=== PATIENT | female | born 1945 | race Caucasian/White ===

== ENCOUNTER 2016-08-09 13:33 | Observation (INO) | payer MEDICARE ==
[~2016-08-09] VITALS: Ht 162.6 cm; Wt 61.4 kg
[~2016-08-09 13:33] MED LIST: AMOX500C2 PO; ASPI-973 PO; GLIM4TAB2 PO; LISI10TA PO; METF1000 PO; SIMV20TA4 PO; TRAZ-118 PO
--- NOTE | 2016-08-09 13:45 | ED.REPORT ---
HPI-General Illness Date of Service Aug 09, 2016 ED Provider: Quincy Jackman MD The patient is a 70 year old female with history of diabetes mellitus, gastroparesis syndrome, hyperlipidemia, and hypertension, who presents to the emergency department after she had a ground level fall this morning. The patient states she fell out of bed but does not know how she fell. The patient states it feels like her left arm and leg get intermittently weak. In May of last year she had 3 falls in 1 day, she was hospitalized and diagnosed with a UTI. She denies any recent head injuries. She does not have history of previous strokes. She denies numbness, slurred speech, vision changes, headache , dizziness, lightheadedness, fever, chills, chest pain, shortness of breath, cough, dysuria, hematuria, nausea, vomiting or diarrhea. No recent medication changes. She is not taking blood thinners. Nursing Notes Stated Complaint: FELL/INFECTION Nursing Notes Reviewed: Yes Allergies: Coded Allergies: No Known Allergies (Verified , 08/09/16) Scheduled Amoxicillin (Amoxicillin) 500 Mg Capsule 500 MG PO BID Aspirin (Aspirin) 81 Mg Tablet 81 MG PO DAILY Glimepiride (Glimepiride) 4 Mg Tablet 4 MG PO BID Lisinopril (Lisinopril) 10 Mg Tablet 10 MG PO DAILY Metformin (Glucophage) 1,000 Mg Tablet 1,000 MG PO BID Simvastatin (Simvastatin) 20 Mg Tablet 20 MG PO HS Trazodone (Trazodone) 100 Mg Tablet 200 MG PO HS General Time Seen by MD: 13:40 Chief Complaint Other (fall) Hx Obtained From: Patient, Spouse Arrived By: Walk-in Sudden in Onset?: Yes Onset Occurred: 5 - 8 hours ago Symptom Duration: Since onset Severity: Current: No pain currently Severity: Maximum: No pain Recent Healthcare: No recent hospitalization, Recent doctor visit Similar Sx Previous: Yes Past Medical History Past Medical History Restless leg syndrome Insomnia Retinopathy Tubular adenoma of colon Gastroparesis syndrome Reports: Diabetes mellitus, Hyperlipidemia, Hypertension Past Surgical History Reports: Hysterectomy Reports: Back/neck surgery Family History Noncontributory Smoking History Never Smoker Social History Alcohol Use: Denies alcohol use Drug Use: Denies drug use Other Social History: Good social support, , Local resident Ambulatory Status Independent Review of Systems Full Review of Systems Constitutional: Denies: Chills, Fever Respiratory: Denies: Non-productive cough, Shortness of breath Cardiovascular: Denies: Chest pain GI: Denies: Abdominal pain, Diarrhea, Nausea, Vomiting Female: Denies: Dysuria, Hematuria Neurologic: Reports: Change LOC (unclear), Focal weakness (left arm and leg), Denies: Dizziness, Headache, Numbness, Slurred speech, Unable to speak, Vision change Complete sys rev & neg: except as marked. Physical Exam Vital Signs Vital Signs Date Time Temp Pulse Resp B/P Pulse Ox O2 Delivery O2 Flow Rate FiO2 08/09/16 13:47 37 95 13 148/68 95 Room Air Initial VS: Reviewed Neck: Supple, Non-tender, Full range of motion Extremities: Vascular intact, Neuro intact, No swelling, No tenderness Skin: Warm, Dry, No cyanosis Psychiatric: Mood/affect normal, Behavior normal, Normal thought content General/Constitutional: Awake, Alert, No acute distress, Well appearing Head / Eyes: Atraumatic, Normocephalic, PERRL, EOMI ENT: Airway patent Mouth: Positive: Mucous membranes dry Respiratory / Chest: Atraumatic, Breath sounds NL, Breath sounds = bilat, No respiratory distress, No rales, No rhonchi, No wheezing, No retractions Cardiovascular: Heart rate NL, Regular rhythm, Heart sounds NL, No gallop, No murmurs, No rubs, Cap refill not delayed, Peripheral circulation NL Abdomen: Atraumatic, Soft, Non-tender, No guarding, No rebound, BS normoactive , No distention Neurologic: Oriented X3, Speech NL, No sensory deficits, CN II - XII intact, Cerebellar NL, Memory NL Speech is fluent, linear, and organized. Strength is 5/5 to both upper and lower extremities. Some right-sided pronator drift, subtle but there. A little difficulty with finger to nose testing bilaterally, but nothing unilaterally. A little difficulty with heel to steiner on the left. Interpretation & Diagnostics Lab Results Interpretation Result Diagram: 08/09/16 1400 08/09/16 1400 Test 08/09/16 14:00 White Blood Count 4.9th/mm3 (3.8-10.1) Red Blood Count 3.36mil/mm3 (3.90-5.20) Hemoglobin 10.2g/dL (12.0-15.6) Hematocrit 31.1% (35.0-46.0) Mean Corpuscular Volume 92.6fL (81-100) Mean Corpuscular Hemoglobin 30.4pg (27.0-35.0) Mean Corpuscular Hemoglobin Concent 32.8% (32.0-37.0) Red Cell Distribution Width 12.5% (12.3-15.4) Platelet Count 146bil/L (150-400) Neutrophils (%) (Auto) 74.9% (40-74) Lymphocytes (%) (Auto) 19.6% (14-46) Monocytes (%) (Auto) 4.1% (4-12) Eosinophils (%) (Auto) 0.8% (0-5) Basophils (%) (Auto) 0.4% (0-3) Sodium Level 138mEq/L (134-144) Potassium Level 4.6mEq/L (3.5-5.2) Chloride Level 98mEq/L (97-108) Carbon Dioxide Level 25mmol/L (18-29) Blood Urea Nitrogen 24mg/dL (8-27) Creatinine 1.38mg/dL (0.57-1.00) Estimat Glomerular Filtration Rate 54mL/min (>59) Glucose Level 133mg/dL (60-99) Calcium Level 9.0mg/dL (8.5-10.1) Magnesium Level 1.4mg/dL (1.6-2.6) Total Bilirubin 0.8mg/dL (0.0-1.2) Aspartate Amino Transf (AST/SGOT) 17U/L (0-50) Alanine Aminotransferase (ALT/SGPT) 8U/L (0-32) Alkaline Phosphatase 47U/L (25-165) Troponin T < 0.010ug/L (0.0-0.011) Total Protein 6.4g/dL (6.4-8.4) Albumin 4.1g/dL (3.4-5.0) Hold Wahl Top Tube Received (Received) ECG Interpretation ECG Interpretation: Poor baseline quality EKG Sinus rhythm LAD No ST segment elevation No T wave abnormalities No prior EKGs available for comparison Time: 14:20 Interpreted by: ED physician X-Ray Chest Interpretation Chest Xray Interpretation: IMPRESSION: No acute process. Dictated by: Chandrakant Mac M.D. on 08/09/2016 at 14:27 Interpretation / Wet Read by: Interpret - Radiologist CT Head Interpretation IMPRESSION: No acute intracranial abnormality. Dictated by: Chandrakant Mac M.D. on 08/09/2016 at 15:19 Study: Head CT no contrast Interpretation / Wet Read by: Keyshawn - Radiologist Re-Eval/Medical Decision Med Decision/Clinical Course The patient is a 70 year old female with history of diabetes mellitus, gastroparesis syndrome, hyperlipidemia, and hypertension, who presents to the emergency department after she had a ground level fall this morning. She has additionally noticed some left arm and leg weakness and was last normal prior to going to bed last night. She has no history of stroke. Here in the emergency department the patient is afebrile stable vital signs still has notable for right-sided pronator drift and difficulty with finger to nose testing bilaterally. LABS: CBC hematocrit 31.1, no leukocytosis. CMP: BUN 24, creatinine 1.38, negative troponin, CMP is otherwise unremarkable. CXR: negative Head CT: No acute intracranial process At this time patient is not within any TPA window. Moreover, she does not have any significant ongoing neurologic deficits though does have subtle right-sided pronator drift concerning for possible previous ischemic events. No evidence of mass lesion or intracranial hemorrhage. No evidence of acute infectious process such as meningitis. Patient will be admitted for further workup including MRI and carotid imaging for risk stratification. Discussed with admitting hospitalist and accepted in stable condition. Source of Hx: Old records, Family Time of Eval: 14:57 Re-Evaluation/Progress Note: Discussed plan for admission with the patient and her . All questions were addressed. Consultation : Referral / Consult Name: Thuan Garcia MD Consulted With: Hospitalist Call Returned at: 15:10 Receptionist Scheduler: Will see patient, Agrees with eval, Agrees with plan, Accepts admit Counseled Regarding: Diagnosis, Lab results, Need for admission Discharge & Departure Primary Impression: TIA (transient ischemic attack) Transient cerebral ischemia type: unspecified Qualified Code: G45.9 - Transient cerebral ischemic attack, unspecified Disposition: ADMITTED TO HOSPITAL Discharge Condition All VS Reviewed: Yes Condition: Stable Referrals: Johan Chacon MD (PCP) Scribe Attestation Portions of this note were transcribed by Layla Jackson. Dr. Augustina Falcon personally performed the history, physical exam and medical decision-making; I reviewed and confirmed the accuracy of the information in the transcribed note. Signed by: Christoph Cummings, 08/09/2016 and 1526. copies to: Johan Chacon MD, Beck O MD Aug 09, 2016 13:45 Layla Jackson Aug 09, 2016 13:49
[2016-08-09 13:47] VITALS: BP 148/68; PULSE 95; RESP 13; O2SAT 95
[2016-08-09 14:00] VITALS: BP 138/60; PULSE 81; O2SAT 98
--- NOTE | 2016-08-09 14:28 | DRSVH ---
PROCEDURE: X-RAY CHEST ONE VIEW, PORTABLE ([id number]) INDICATIONS: SYNCOPE TECHNIQUE: One view of the chest was acquired. COMPARISON: [facility], CR, CHEST 2VW, 01/08/2013, 10:05. FINDINGS: Surgical changes and devices: None. Lungs and pleura: No pleural effusions or pneumothorax. Lungs are clear. Mediastinum: Mediastinal contours appear normal. Heart size is normal. Bones and chest wall: No suspicious bony lesions. Overlying soft tissues appear unremarkable. IMPRESSION: No acute process. Dictated by: Chandrakant Mac M.D. on 08/09/2016 at 14:27 Approved by: Chandrakant Mac M.D. on 08/09/2016 at 14:27
[2016-08-09 14:32] LABS: BASOPHILS % (AUTO) 0.4 % (0-3); EOSINOPHILS % (AUTO) 0.8 % (0-5); MONOCYTES % (AUTO) 4.1 % (4-12); Mean Corpuscular Hemoglobin 30.4 pg (27.0-35.0); Mean Corpuscular Volume 92.6 fL (81-100); NEUTROPHILS % (AUTO) 74.9 % (40-74); Platelet Count 146 bil/L (150-400)
[2016-08-09 14:47] LABS: Magnesium 1.4 mg/dL (1.6-2.6)
[2016-08-09 14:49] LABS: TROPONIN T < 0.010 ug/L (0.0-0.011)
--- NOTE | 2016-08-09 15:21 | DRSVH ---
PROCEDURE: CT BRAIN WITHOUT CONTRAST ([id number]) INDICATIONS: tia, r pronator drift TECHNIQUE: Noncontrast 4.5 mm thick angled axial sections acquired from the foramen magnum to the vertex, with c oronal reformats. COMPARISON: [facility], CT, CT BRAIN WO CON, 05/15/2016, 12:18. FINDINGS: Image quality: Excellent. CSF spaces: Basal cisterns are patent. No extra-axial fluid collections. The ventricles are symmet dejan in size and shape. Brain: No intracranial bleeds or masses. There is cerebral volume loss for age, with resultant vent ricular and sulcal prominence. There are periventricular and deep white matter chronic small vessel ischemic changes. There is intracranial internal carotid artery atherosclerosis. Skull and face: Calvarium and visualized facial bones appear intact, without suspicious lesions. Sinuses: Visualized sinuses and mastoids are clear. IMPRESSION: No acute intracranial abnormality. Dictated by: Chandrakant Mac M.D. on 08/09/2016 at 15:19 Approved by: Chandrakant Mac M.D. on 08/09/2016 at 15:20
[2016-08-09] MEDS ORDERED: Polyethylene Glycol (PEG) 17 Gm Powder PO PRN (15:30)
[2016-08-09] MEDS ORDERED: Alum-Mag Hydrox-Simeth 30 mL Suspension PO PRN (15:30)
[2016-08-09] MEDS ORDERED: Ondansetron 2 mg/mL 2 mL Inj IV PRN (15:30)
[2016-08-09] MEDS ORDERED: 0.9% Sodium Chloride 1,000 ML IV PRN (15:30)
[2016-08-09] MEDS ORDERED: Labetalol 5 mg/mL 4 mL Inj IVPUSH PRN (15:30)
[2016-08-09 16:10] LABS: INR 0.94 ratio
[2016-08-09 17:40] VITALS: BP 180/66; PULSE 85; RESP 18; O2SAT 97
[2016-08-09 18:08] VITALS: PULSE 85
[2016-08-09] MEDS: Heparin 5,000 Unit/mL Inj SUBQ SCH (18:33)
--- NOTE | 2016-08-09 18:40 | NUR ---
ADMIT Patient arrived on floor at 1730, AAOx3, able to self transfer to standing scale with SBA. Patient has FWW from home that she began using this morning for safety. Reports some mild weakness in left leg, overall neuro exam is unremarkable. Oriented to room, MPC, call light and hospital policy. Med rec completed with med list and patient recall. will bring med bottles from home for final verification. Bed low and locked, call light in reach, bed alarm on for safety, care and frequent rounding ongoing.
[2016-08-09 20:00] VITALS: PULSE 87
[2016-08-09 21:34] LABS: APPEARANCE,URINE HAZY (CLEAR,HAZY); COLOR,URINE STRAW (YELLOW); OCCULT BLOOD,URINE NEGATIVE (NEGATIVE); PH,URINE 5.5 (5.0-8.0); UROBILINOGEN,URINE NORMAL (NORMAL)
[2016-08-09 21:38] VITALS: BP 148/68; PULSE 80; RESP 20; O2SAT 96
--- NOTE | 2016-08-09 23:50 | PCM.HPMED ---
Subjective Date of Service Aug 09, 2016 Primary Provider: Admitting Physician: Eugenio Jameson MD Primary Care Physician: Johan Chacon MD Attending Physician: Eugenio Jameson MD Chief Complaint: Weakness and syncope History of Present Illness: Raine Kelley is a 70 year old female with history of diabetes mellitus, gastroparesis syndrome, hyperlipidemia, and hypertension, who presents to the emergency department after she had a ground level fall this morning. The patient states she fell out of bed but does not know how she fell. The patient states it feels like her left arm and leg get intermittently weak. The patient and her are both poor historians and unable to give a clear account of the events that brought her to the hospital. It appears that today she had an episode of severe weakness and perhaps unilateral "shaking" in her left leg and arm but this is uncertain. The shaking had resolved but the weakness remained. The patient was previously hospitalized for a TIA work up in May of 2016 with what she describes as similar symptoms, which was largely unremarkable. The patient denies any seizures, slurred speech, persistent unilateral weakness , loss of bladder or bowel function, or a postictal state. Of note the patient has not been eating well and has continued to take all of her medications including glimepiride. She does have a glucometer at home but has only today learned to use it today and had measured her blood sugar several hours after the episode of weakness which was normal. Her symptoms have now completely resolved and she reports that she returned to her baseline completely after her hospitalization in May until this episode today. Review of Systems: Scheduled Amoxicillin (Amoxicillin) 500 Mg Capsule 500 MG PO BID Aspirin (Aspirin) 81 Mg Tablet 81 MG PO DAILY Glimepiride (Glimepiride) 4 Mg Tablet 4 MG PO BID Lisinopril (Lisinopril) 10 Mg Tablet 10 MG PO DAILY Metformin (Glucophage) 1,000 Mg Tablet 1,000 MG PO BID Simvastatin (Simvastatin) 20 Mg Tablet 20 MG PO HS Trazodone (Trazodone) 100 Mg Tablet 200 MG PO HS Allergies Coded Allergies: No Known Allergies (Verified , 08/09/16) Home Medications A comprehensive review of systems was performed and was negative except as noted above in the history of present illness. PMH Restless leg syndrome Insomnia Retinopathy Tubular adenoma of colon Gastroparesis syndrome Diabetes mellitus, Hyperlipidemia, Hypertension Surgical History Hysterectomy Back/neck surgery Family History Family history of diabetes. Social History Hx Alcohol Use: No Hx Substance Use: No Hx Tobacco Use: No Smoking Status: Never Smoker Exam Vital Signs Vital Sign - Last Date Time Temp Pulse Resp B/P Pulse Ox O2 Delivery O2 Flow Rate FiO2 08/09/16 20:00 87 08/09/16 17:40 36.8 18 180/66 97 Room Air Exam General: No acute distress, well-developed, well-nourished, appropriately interactive HEENT: Normocephalic, atraumatic. External ears without defect. Pupils equal, round, and reactive to light and accommodation. Anicteric sclerae, moist conjunctivae, and no lid lag. Oropharynx free of erythema and cobble stoning with moist mucosa. Neck: Supple with full range of motion. No jugular venous distension. No bruits. No lymphadenopathy or thyromegaly. Cardiovascular: Regular rate and rhythm with no murmurs, rubs, or gallops appreciated Pulmonary: Clear to auscultation bilaterally with no crackles, wheezes, or rhonchi. Normal respiratory effort with no use of accessory muscles. Abdomen: Bowel tones present. Soft, nontender, nondistended. No hepatosplenomegaly or masses appreciated. Extremities: No clubbing, cyanosis, edema, or lymphadenopathy appreciated. Skin: Normal temperature, turgor, and texture; no rash, ulcers, or subcutaneous nodules appreciated. Neurological: Cranial nerves grossly intact. Normal muscle strength, tone, and bulk. Reflexes, coordination, and sensory function within normal limits. No known gait impairment. Psychiatric: Normal mood and affect. Alert and oriented to person, place, and time. Lab and Diagnostics Result Diagram: 08/09/16 1400 08/09/16 1400 X-Rays, CTs and MRIs CT BRAIN WITHOUT CONTRAST IMPRESSION: No acute intracranial abnormality. Dictated by: Chandrakant Mac M.D. on 08/09/2016 at 15:19 Assessment & Plan Raine Kelley is a 70 year old female with history of diabetes mellitus, gastroparesis syndrome, hyperlipidemia, and hypertension, who presents to the emergency department after she had a ground level fall this morning. The patient states she fell out of bed but does not know how she fell. Ground level fall/weakness, present on admission, active -Patient had a prior extensive work up for stroke and TIA which was negative -Due to lack of clarity on the patients symptoms and prior MRI which suggested a possibility of demylenating disease will repeat an MRI -Cardiac pathology is possible as well, although recent ECHO was negative -Will continue to monitor on telemetry -The most likely etiology of the patients episode is hypoglycemia due to glimepiride -Patient admits to eating very small meals and sometimes missing meals in favor of smaller snacks -Physical therapy and speech therapy to evaluate -Lipid panel in AM -Aspirin 81 mg and statin to be started in AM -Have asked the patients to bring in all her medications to clarify what she is taking as she is not entirely certain Diabetes mellitus type 2, present on admission, presumed stable -Last A1C 6.8, will repeat -Would D/C glimepiride Restless leg syndrome, present on admission, presumed stable -Will check iron studies Hypertension, present on admission, presumed stable -Continue lisinopril CODE STATUS: FULL CODE Admit patient to observation status with anticipated length of stay <2 midnights due to patients severity of symptoms. Attending Statement The patient was seen and examined together with Dr. Ramon on 08/09/2016 and I agree with the history, exam and plan as outlined in the note above. . Chantel Ramon DO Aug 09, 2016 23:50 Kings Carlos MD Aug 14, 2016 16:25
[2016-08-10 00:07] LABS: Unsaturated Iron Binding 216.9 ug/dL
[2016-08-10 00:41] VITALS: BP 177/78; PULSE 78; RESP 20; O2SAT 97
[2016-08-10] MEDS: Heparin 5,000 Unit/mL Inj SUBQ SCH ×2 (00:59→08:30)
[2016-08-10 04:53] VITALS: BP 183/78; PULSE 77; RESP 20; O2SAT 96
[2016-08-10 07:17] LABS: BASOPHILS % (AUTO) 0.3 % (0-3); EOSINOPHILS % (AUTO) 2.2 % (0-5); MONOCYTES % (AUTO) 8.1 % (4-12); Mean Corpuscular Hemoglobin 30.6 pg (27.0-35.0); NEUTROPHILS % (AUTO) 59.4 % (40-74); Platelet Count 130 bil/L (150-400)
[2016-08-10 10:24] VITALS: BP 165/69; PULSE 86; RESP 19; O2SAT 97
--- NOTE | 2016-08-10 10:27 | DRSVH ---
PROCEDURE: MRI STROKE PROTOCOL ([id number]) Pre- and post-contrast brain MRI, non-contrast brain MR angiogram, pre- and postcontrast neck MR traci ogram INDICATIONS: TIA TECHNIQUE: Brain: Noncontrast axial T1 spin echo, axial T2 fast spin echo, sagittal and axial FLAIR, coronal T2 fast spin echo, axial gradient echo, axial diffusion and ADC through the brain. After the administr ation of contrast, axial 3D VIBE of the cranial vasculature and brain. Brain MRA: Non-contrast 3-D time of flight MR angiogram, with multiple euymgli-pgalanpqy-nzumcopuih (MIP) reformats performed. Neck MRA: Axial and sagittal TruFISP through the neck. Coronal dynamic MR angiogram during administ ration of contrast in the arterial and venous phases, with 3-dimenstional zkcgqia-wstyalhgi-bqotnkkmu n (MIP) reformats constructed from subtraction images. COMPARISON: None. FINDINGS: Image quality: Excellent. BRAIN: CSF spaces: Ventricles are normal in size and shape. Basal cisterns are patent. No extra-axial flu id collections. Brain: No intracranial bleeds or mass effects. Gibson-white matter interface is normal. Diffusion we ighted images show no acute ischemic insults. Brainstem appears normal. Normal intravascular flow v oids are present. A prominent, incidentally noted draining vein is present from the anterior horn of the left lateral ventricle which likely represents a developmental venous anomaly (series 3, images 9 [id number]). No abnormal intracranial enhancement. There are a few periventricular regions of increased T2 /FLAIR signal hyperintensity, some of which have a confluent appearance. The largest region adjacent to the left lateral ventricle measures 2.1 x 1.5 cm in diameter (series 11, image 16). There is no en hancement associated with these lesions. Skull and face: Calvarial marrow signal is normal. Orbits appear normal. Sinuses: Sinuses and mastoids are clear. BRAIN MR ANGIOGRAM: Anterior circulation: Intracranial internal carotid arteries demonstrate normal course. A high-grade stenosis is present within the cavernous portion of the right internal carotid artery and a moderate to high-grade stenosis is present within the cavernous portion of the left internal carotid artery. T he flow within the paired anterior cerebral arteries is normal and symmetric. The flow within the mi ddle cerebral arteries is normal and symmetric. The anterior communicating artery is seen. No steno ses, occlusions, or aneurysms. Posterior circulation: The visualized portions of the vertebral arteries demonstrate normal caliber, and join to form a normal appearing basilar artery. The flow within the posterior cerebral arteries is normal and symmetric. No stenoses, occlusions, or aneurysms. NECK MR ANGIOGRAM: Carotids: Great vessels demonstrate a conventional anatomy as they arise from the aortic arch. The origins of the common carotid arteries appear patent. The calibers and courses of both common caroti d arteries are normal. The right carotid bulb this patient. The more superior portions of the right i nternal carotid artery are patent and demonstrate normal course and caliber. A mild stenosis is prese nt at the left carotid bulb. The more superior left internal carotid artery demonstrates normal cours e and caliber. The internal carotid arteries demonstrate normal course and caliber. Posterior circulation: The origins of the vertebral arteries appear patent. More superior portions of both vertebral arteries demonstrate normal course and caliber, and join to form a normal appearing basilar artery. Miscellaneous: Subclavian arteries appear patent. Pre-contrast images through the neck show no soft tissue abnormalities. IMPRESSION: BRAIN MRI: 1. No increased restricted diffusion to suggest acute or subacute infarct. 2. A few periventricular T2/FLAIR signal hyperintense foci. These are nonspecific findings that can b e associated with chronic microvascular ischemic changes; however given the confluent appearance of t he regions, a demyelinating process could also be considered in the differential. There is no associa ascencion enhancement with these regions. BRAIN MR ANGIOGRAM: 1. Severe right and moderate to severe left focal stenosis in the cavernous portions of the internal carotid arteries. 2. No other stenosis, occlusion, or aneurysm. NECK MR ANGIOGRAM: 1. Mild stenosis of the left carotid bulb. No other stenosis, occlusion, or aneurysm. The estimate of stenosis included in the report of the imaging study was calculated using the NASCET method Dictated by: Monica Bain M.D. on 08/10/2016 at 10:08 Approved by: Monica Bain M.D. on 08/10/2016 at 10:26
--- NOTE | 2016-08-10 11:10 | NUR ---
Evaluation completed. Please go to "Notes" then click on "Assessments and Notes" (bottom left corner of screen). Then select appropriate discipline tab on top of screen.
[2016-08-10 11:41] VITALS: PULSE 96
[2016-08-10 13:58] VITALS: BP 158/84; PULSE 86; RESP 19; O2SAT 98
--- NOTE | 2016-08-10 14:24 | NUR ---
Social Work Initial Assessment: SW met with patient at bedside to discuss discharge plan. Patient is a 70 year old female admitted on 08/09/16 for transient ischemic attack. patient payer as [employer]. 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 Patient PCP as MD Chacon. Patient resides in [place] with Sascha who provides support and care. patient pharmacy of choice as [facility]. Patient has no previous HHC or SNF history. Patient has a walker at home. Patient states having no AD and SW provided patient with AD form. patient states being independent with needs and states that she still drives independently. Patient states having being assessed by PT. Therapy notes reviewed and recommendations for home. No other anticipated discharge needs identified at this time. SW will continue to follow. PLAN: Home with via POV, pending clinical course. SW will continue to follow. [place] STREETER Addendum: 08/10/16 at 1429 by KIMBERLYN QUIJANO Amended: Links added.
--- NOTE | 2016-08-10 14:55 | NUR ---
Evaluation completed. Please go to "Notes" then click on "Assessments and Notes" (bottom left corner of screen). Then select appropriate discipline tab on top of screen.
--- NOTE | 2016-08-10 15:44 | NUR ---
Evaluation completed. Please go to "Notes" then click on "Assessments and Notes" (bottom left corner of screen). Then select appropriate discipline tab on top of screen.
--- NOTE | 2016-08-10 16:09 | PCM.DIMED ---
Discharge Instructions Date of Service Aug 10, 2016 Dates of Hospitalization Aug 09, 2016 at 15:54 Discharge Diagnosis Discharge Diagnosis Transient ischemic attack (TIA) Diabetes type II Restless leg syndrome Hypertension Diet No restrictions, Other (soft diet) Activity Other (gradually return to your normal daily activities) Call your provider Fever or Chills, Shortness of breath, Bleeding, Chest pain, Weakness (unilateral ) Patient Instructions It has been recommended that you take the aspirin and Plavix together for the next 3 months if you have any further questions please contact your PCP Follow-up Provider: Johan Chacon MD Follow-up with PCP in: 1 week (if an appointment has already been made please call to make an appointment) Provider: Guanakito Hdez MD Follow-up in: 4 weeks (if an appointment has already been made please call to make an appointment) Paola Damian DO Aug 10, 2016 16:09
[2016-08-10] MEDS ORDERED: CLOP75TA28 PO (16:12)
--- NOTE | 2016-08-10 16:26 | PCM.DC.MED ---
Discharge Summary Date of Service Aug 10, 2016 Dates of Hospitalization Date of Hospital Admission Aug 09, 2016 at 15:54 Date of Discharge: Aug 10, 2016 Providers: Admitting Physician: Eugenio Jameson MD Primary Care Physician: Johan Chacon MD Attending Physician: Eugenio Jameson MD Diagnosis at Time of Discharge Diagnosis at Time of Discharge Transient ischemic attack (TIA) Diabetes type II Restless leg syndrome Hypertension Consultations Neurology Dr. barclay Procedures XRay, CTs & MRIs CT BRAIN WITHOUT CONTRAST IMPRESSION: No acute intracranial abnormality. Dictated by: Chandrakant Mac M.D. on 08/09/2016 at 15:19 PROCEDURE: MRI STROKE PROTOCOL ([id number]) Pre- and post-contrast brain MRI, non-contrast brain MR angiogram, pre- and postcontrast neck MR angiogram INDICATIONS: TIA TECHNIQUE: Brain: Noncontrast axial T1 spin echo, axial T2 fast spin echo, sagittal and axial FLAIR, coronal T2 fast spin echo, axial gradient echo, axial diffusion and ADC through the brain. After the administration of contrast, axial 3D VIBE of the cranial vasculature and brain. Brain MRA: Non-contrast 3-D time of flight MR angiogram, with multiple maximum- intensity-projection (MIP) reformats performed. Neck MRA: Axial and sagittal TruFISP through the neck. Coronal dynamic MR angiogram during administration of contrast in the arterial and venous phases, with 3-dimenstional khwepji-nnhqxutql-vzvcuqpysv (MIP) reformats constructed from subtraction images. COMPARISON: None. FINDINGS: Image quality: Excellent. BRAIN: CSF spaces: Ventricles are normal in size and shape. Basal cisterns are patent. No extra-axial fluid collections. Brain: No intracranial bleeds or mass effects. Gibson-white matter interface is normal. Diffusion weighted images show no acute ischemic insults. Brainstem appears normal. Normal intravascular flow voids are present. A prominent, incidentally noted draining vein is present from the anterior horn of the left lateral ventricle which likely represents a developmental venous anomaly ( series 3, images 94-102). No abnormal intracranial enhancement. There are a few periventricular regions of increased T2/FLAIR signal hyperintensity, some of which have a confluent appearance. The largest region adjacent to the left lateral ventricle measures 2.1 x 1.5 cm in diameter (series 11, image 16). There is no enhancement associated with these lesions. Skull and face: Calvarial marrow signal is normal. Orbits appear normal. Sinuses: Sinuses and mastoids are clear. BRAIN MR ANGIOGRAM: Anterior circulation: Intracranial internal carotid arteries demonstrate normal course. A high-grade stenosis is present within the cavernous portion of the right internal carotid artery and a moderate to high-grade stenosis is present within the cavernous portion of the left internal carotid artery. The flow within the paired anterior cerebral arteries is normal and symmetric. The flow within the middle cerebral arteries is normal and symmetric. The anterior communicating artery is seen. No stenoses, occlusions, or aneurysms. Posterior circulation: The visualized portions of the vertebral arteries demonstrate normal caliber, and join to form a normal appearing basilar artery. The flow within the posterior cerebral arteries is normal and symmetric. No stenoses, occlusions, or aneurysms. NECK MR ANGIOGRAM: Carotids: Great vessels demonstrate a conventional anatomy as they arise from the aortic arch. The origins of the common carotid arteries appear patent. The calibers and courses of both common carotid arteries are normal. The right carotid bulb this patient. The more superior portions of the right internal carotid artery are patent and demonstrate normal course and caliber. A mild stenosis is present at the left carotid bulb. The more superior left internal carotid artery demonstrates normal course and caliber. The internal carotid arteries demonstrate normal course and caliber. Posterior circulation: The origins of the vertebral arteries appear patent. More superior portions of both vertebral arteries demonstrate normal course and caliber, and join to form a normal appearing basilar artery. Miscellaneous: Subclavian arteries appear patent. Pre-contrast images through the neck show no soft tissue abnormalities. IMPRESSION: BRAIN MRI: 1. No increased restricted diffusion to suggest acute or subacute infarct. 2. A few periventricular T2/FLAIR signal hyperintense foci. These are nonspecific findings that can be associated with chronic microvascular ischemic changes; however given the confluent appearance of the regions, a demyelinating process could also be considered in the differential. There is no associated enhancement with these regions. BRAIN MR ANGIOGRAM: 1. Severe right and moderate to severe left focal stenosis in the cavernous portions of the internal carotid arteries. 2. No other stenosis, occlusion, or aneurysm. NECK MR ANGIOGRAM: 1. Mild stenosis of the left carotid bulb. No other stenosis, occlusion, or aneurysm. The estimate of stenosis included in the report of the imaging study was calculated using the NASCET method Dictated by: Monica Bain M.D. on 08/10/2016 at 10:08 Approved by: Monica Bain M.D. on 08/10/2016 at 10:26 Brief History Raine Kelley is a 70 year old female with history of diabetes mellitus, gastroparesis syndrome, hyperlipidemia, and hypertension, who presents to the emergency department after she had a ground level fall this morning. The patient states she fell out of bed but does not know how she fell. The patient states it feels like her left arm and leg get intermittently weak. The patient and her are both poor historians and unable to give a clear account of the events that brought her to the hospital. It appears that today she had an episode of severe weakness and perhaps unilateral "shaking" in her left leg and arm but this is uncertain. The shaking had resolved but the weakness remained. The patient was previously hospitalized for a TIA work up in May of 2016 with what she describes as similar symptoms, which was largely unremarkable. The patient denies any seizures, slurred speech, persistent unilateral weakness , loss of bladder or bowel function, or a postictal state. Of note the patient has not been eating well and has continued to take all of her medications including glimepiride. She does have a glucometer at home but has only today learned to use it today and had measured her blood sugar several hours after the episode of weakness which was normal. Her symptoms have now completely resolved and she reports that she returned to her baseline completely after her hospitalization in May until this episode today. Hospital Course Raine Kelley is a 70 year old female with history of diabetes mellitus, gastroparesis syndrome, hyperlipidemia, and hypertension, who presents to the emergency department after she had a ground level fall this morning. The patient states she fell out of bed but does not know how she fell. Patient was admitted from the ED for observation for rule out possible TIA. Patient had a recent echo that was within normal limits ruling out any cardiac causes. Patient was thought to be hypoglycemic upon admission and the patient' s glyburide was stopped. Repeat hemoglobin A1c was performed however the results are still pending. Patient had a fall TIA/stroke workup and the patient 's lipid panel was found to be within normal limits. The patient also had an MRI of the brain and carotids and there was found to be severe stenosis on the right and moderate stenosis on the left carotid. Due to the location of the stenosis this is most likely indicative of a TIA. Neurology was consulted (Dr. Barclay) who agreed with this finding and stated that the patient should be treated with both aspirin 81 mg and Plavix 75 mg for 3 months and then aspirin 81 mg alone. The patient was Plavix loaded today with 300 mg. The patient was evaluated by speech for swallow exam who recommended that the patient go on a soft diet. Physical therapy also evaluated the patient and cleared her to go home safely. Exam Vital Signs (Last) Date Time Temp Pulse Resp B/P Pulse Ox O2 Delivery O2 Flow Rate FiO2 08/10/16 13:58 36.8 86 19 158/84 98 Room Air Exam Physical Exam: GEN: Patient was awake, alert, responding appropriately to questions HEENT: PERRLA, EOMI, Neck soft supple, trachea midline, nomocephalic/atraumatic CV: +S1/S2, RRR, no murmurs auscultated Respiratory: CTAB, no wheezes, rales, rhonchi GI: +bowel sounds x4, soft, compressible, non TTP EXT: no c/c/e Neuro: CN II-XII grossly intact Psych: mood and affect were appropriate Test 08/09/16 14:00 08/09/16 21:03 08/10/16 06:40 Prothrombin Time 10.0sec (8.1-12.5) Prothromb Time International Ratio 0.94ratio Magnesium Level 1.4mg/dL (1.6-2.6) Iron Level 47ug/dL (35-150) Total Iron Binding Capacity 264ug/dL (250-450) Percent Iron Saturation 18%sat (15-50) Unsaturated Iron Binding 216.9ug/dL Total Bilirubin 0.8mg/dL (0.0-1.2) Aspartate Amino Transf (AST/SGOT) 17U/L (0-50) Alanine Aminotransferase (ALT/SGPT) 8U/L (0-32) Alkaline Phosphatase 47U/L (25-165) Troponin T < 0.010ug/L (0.0-0.011) Total Protein 6.4g/dL (6.4-8.4) Albumin 4.1g/dL (3.4-5.0) Hold Wahl Top Tube Received (Received) Urine Color Straw (YELLOW) Urine Appearance Hazy (CLEAR,HAZY) Urine pH 5.5 (5.0-8.0) Urine Specific [place] 1.008 (1.003-1.035) Urine Protein Negativemg/dL (NEG,TRACE) Urine Glucose (UA) Negativemg/dL (NEGATIVE) Urine Ketones Negativemg/dL (NEGATIVE) Urine Occult Blood Negative (NEGATIVE) Urine Nitrite Negative (NEGATIVE) Urine Bilirubin Negative (NEGATIVE) Urine Urobilinogen Normalmg/dL (NORMAL) Urine Leukocyte Esterase Negative (NEGATIVE) Urine RBC 0-2/hpf (0-2) Urine WBC 0-5/hpf (0-5) Urine Epithelial Cells Few/hpf (NONE-MOD) Urine Crystals None seen (NONE SEEN) Urine Bacteria None/hpf (NONE-FEW) Urine Hyaline Casts None/lpf (NONE) Urine Granular Casts None seen (NONE SEEN) Urine Waxy Casts None seen (NONE SEEN) Urine Red Blood Cell Casts None seen (NONE SEEN) Urine White Blood Cell Casts None seen (NONE SEEN) Urine Mucus Present (None Seen) Urine Trichomonas None seen (NONE SEEN) Urine Yeast None (NONE SEEN) Urinalysis Comment None Urine Culture Reflexed Not indicated White Blood Count 3.2th/mm3 (3.8-10.1) Red Blood Count 3.24mil/mm3 (3.90-5.20) Hemoglobin 9.9g/dL (12.0-15.6) Hematocrit 29.8% (35.0-46.0) Mean Corpuscular Volume 92.0fL (81-100) Mean Corpuscular Hemoglobin 30.6pg (27.0-35.0) Mean Corpuscular Hemoglobin Concent 33.2% (32.0-37.0) Red Cell Distribution Width 12.3% (12.3-15.4) Platelet Count 130bil/L (150-400) Neutrophils (%) (Auto) 59.4% (40-74) Lymphocytes (%) (Auto) 29.7% (14-46) Monocytes (%) (Auto) 8.1% (4-12) Eosinophils (%) (Auto) 2.2% (0-5) Basophils (%) (Auto) 0.3% (0-3) Sodium Level 142mEq/L (134-144) Potassium Level 4.6mEq/L (3.5-5.2) Chloride Level 103mEq/L (97-108) Carbon Dioxide Level 25mmol/L (18-29) Blood Urea Nitrogen 21mg/dL (8-27) Creatinine 1.23mg/dL (0.57-1.00) Estimat Glomerular Filtration Rate 62mL/min (>59) Glucose Level 126mg/dL (60-99) Calcium Level 8.8mg/dL (8.5-10.1) Triglycerides Level 111mg/dL (0-149) Cholesterol Level 138mg/dL (100-199) LDL Cholesterol, Calculated 57.800mg/dL (0-99) VLDL Cholesterol 22.200mg/dL HDL Cholesterol 58mg/dL (>39) Cholesterol/HDL Ratio 2.38 (0.0-4.4) Discharge Medications Discharge Medications Aspirin (Aspirin) 81 Mg Tablet 81 MG PO DAILY (Reported) Clopidogrel (Clopidogrel) 75 Mg Tablet 75 MG PO DAILY Prescribed by: PAOLA DAMIAN DO Lisinopril (Lisinopril) 10 Mg Tablet 10 MG PO DAILY (Reported) Metformin (Glucophage) 1,000 Mg Tablet 1,000 MG PO BID (Reported) Simvastatin (Simvastatin) 20 Mg Tablet 20 MG PO HS (Reported) Trazodone (Trazodone) 100 Mg Tablet 200 MG PO HS (Reported) Followup Plan Discharge Diet: No restrictions, Other (soft diet) Discharge Activity: Other (gradually return to your normal daily activities) Patient Instructions It has been recommended that you take the aspirin and Plavix together for the next 3 months if you have any further questions please contact your PCP Follow-up Provider: Johan Chacon MD Follow-up with PCP in: 1 week (if an appointment has already been made please call to make an appointment) Provider: Guanakito Barclay MD Follow-up in: 4 weeks (if an appointment has already been made please call to make an appointment) Time spent Greater than 35 minutes Paola Damian DO Aug 10, 2016 16:17
--- NOTE | 2016-08-10 16:50 | NUR ---
Case Management: KYLAH explained to patient and family at 1605, all questions answered. Signed original in chart, copy given to patient. Ashley Fuentes RN
--- NOTE | 2016-08-10 17:15 | NUR ---
Discharge Patient departed unit via wheelchair, accompanied by staff and spouse. Patient alert and oriented at time of discharge.Prior to discharge, patient displayed adequate mobility with physical therapy, adequate swallowing with speech therapy. Adequate oral intake, perfusion and ability to preform ADL's. Discharge instructions/medications reviewed with patient/spouse prior to discharge. All questions addressed. Patient belongings and discharge instructions in hand. Prescription electronically sent to [facility].
[2016-08-11 07:10] LABS: Vitamin B12 539 pg/mL (211-946)
--- NOTE | 2016-08-11 11:58 | CONS ---
[address] [address] CONSULTATION REPORT PATIENT: MALIHA CAMPOS : 1945 MR#: [id number] ADMIT: 08/09/2016 JOB ID: [id number] DATE OF SERVICE: 08/10/2016 NEUROLOGY CONSULTATION: REQUESTING PROVIDER: Paola Damian DO CHIEF COMPLAINT: Sudden onset of neurologic symptoms. HISTORY OF PRESENTING ILLNESS: The patient is a pleasant 70-year-old, right-handed woman with multiple medical problems including diabetes, gastroparesis, hyperlipidemia, and hypertension, who reportedly experienced an episode of a sudden fall with no loss of consciousness. This was followed by transient shaking of her left upper and left lower extremities. She reports no history of seizures. She reports no loss of consciousness. Reportedly she underwent a prior workup for a transient ischemic attack which she reports presented with similar symptoms in May 2016 that was unrevealing. She reports no history of seizures. She reports a history of migraine headaches in the distant past, however reports that she has not had any recent migraine headaches. She reports that she has a glucometer at home and reportedly measured her blood sugars prior to the episode and they were reportedly within the normal range. She also reports that she did not have any hypotension associated with the episode. She reports that she does not have any symptoms of orthostasis. REVIEW OF SYSTEMS: A complete review of systems was performed and was remarkable for above noted. MEDICATIONS: At home include trazodone, simvastatin, metformin, lisinopril, glimepiride, aspirin 81 mg daily, and amoxicillin. ALLERGIES: No known drug allergies. PAST MEDICAL HISTORY: Diabetes mellitus type 2, hypertension, hyperlipidemia, gastroparesis, tubular adenoma of the colon, retinopathy, insomnia, and restless leg syndrome. SURGICAL HISTORY: Status post hysterectomy, status post back and neck surgeries. FAMILY HISTORY: No neurological disorders. SOCIAL HISTORY: She lives with her . No tobacco, alcohol, or drugs. IMAGING: Reviewed the CT of the head which demonstrated no acute intracranial abnormality. Reviewed MRI of brain which demonstrated no increased restricted diffusion to suggest an acute or subacute infarct. A few periventricular T2/FLAIR signal hyperintense foci. These are nonspecific findings that can be associated with chronic microvascular ischemic changes; however, given the confluent appearance of the regions, a demyelinating etiology could also be considered in the differential. There is no associated enhancement with these regions. I reviewed this in detail with the patient and it is my suspicion that these abnormalities are secondary to white matter disease associated with chronic changes secondary to her underlying risk factors, hypertension and hyperlipidemia, and her diabetes. Her MRA of the brain and neck demonstrated severe right and moderate to severe left focal stenosis in the cavernous portions of the internal carotid arteries. No other stenosis, occlusions, or aneurysms. Mild stenosis of the left carotid bulb. No other stenosis, occlusion, or aneurysms. She reports no history of neck trauma. LABORATORY STUDIES: WBC of 3.2, hemoglobin 9.9, hematocrit 29.8, and platelets of 130. Sodium 142, potassium 4.6, chloride 103, bicarb 25, BUN 21, creatinine 1.23, glucose 126. Hemoglobin A1c 6.7. Iron 47, TIBC 264, percent saturation 18%. Unsaturated iron binding was 216.9. Triglycerides 111, cholesterol 138, LDL cholesterol 57.8, and HDL cholesterol was 58. Vitamin B12 539 and folate greater than 19.9. PT was 10.0 and INR 0.94. Urinalysis: Straw and hazy. Urine mucus otherwise unremarkable. PHYSICAL EXAMINATION: Temperature 36.6, pulse of 86, respiratory rate of 19, blood pressure 165/69, pulse oximetry 97% on room air. General: She is a well-developed, well-nourished woman in no acute distress. Head: Normocephalic and atraumatic. Neck: Supple. No carotid bruits were auscultated. Chest: Clear to auscultation. Heart: Regular rate and rhythm. Abdomen: Soft, nondistended, nontender. Extremities: No cyanosis, clubbing, or edema. NEUROLOGIC EXAMINATION: Mental status: She is awake, alert, and oriented x3. Speech clear and fluent, with intact comprehension. There was no aphasia. Cranial nerves: Pupils equal, round, and reactive to light. Extraocular movements were smooth and conjugate with no evidence of nystagmus. Face appeared symmetrical. Facial sensation was intact to light touch and temperature. Auditory sensation was intact to finger rub. Palatal elevation was symmetrical. Tongue was midline. Sternocleidomastoid and trapezii are 5/5 bilaterally. Neck was supple. No carotid bruits were auscultated. Negative Kernig. Negative Brudzinski. Motor: Normal tone and bulk. Muscle strength 5/5 throughout. Sensory: There was mildly diminished sensation to light touch and temperature in a bilateral stocking distribution. Deep tendon reflexes were symmetrical and diminished throughout. Plantars were flexor bilaterally. Coordination: Yemzax-[id number]-[id number] was intact, without evidence of dysmetria. Gait was deferred. IMPRESSION: Given her multiple vascular risk factors, in addition to her intracranial stenosis, my suspicion is that she may have had a limb-shaking TIA. She does have focal stenosis in the cavernous portion of the right internal carotid artery and she did report that she had a transient episode of left upper extremity shaking following the episode. My recommendation is to add Plavix to her aspirin and to continue on Plavix and aspirin for three months and then discontinue on aspirin 81 mg daily thereafter. I would then repeat her imaging study with a computed tomography angiogram of her head. We discussed the differential diagnosis in detail. Certainly a focal seizure is also in the differential; however, it appears less likely given that she has no history of any seizures in the past. Also in the differential is a vasovagal episode, however she did not lose consciousness. Cardiac etiology: On telemetry here her testing has been unrevealing. I do recommend that she follow up with her primary care provider in one week also to address her thrombocytopenia. I would continue close monitoring of her complete blood count and close monitoring for worsening thrombocytopenia now that a 2nd antiplatelet agent will be added. Thank you, again, Dr. Paola Damian DO, for allowing me to participate in the care of your patient. We discussed in detail optimization of control of risk factors for transient ischemic attacks. We discussed the importance of continuing to optimize control of her transient ischemic attack risk factors. I do recommend that she be followed up within one week with her primary care provider. Reviewed side effects and risks versus benefits of dual antiplatelet therapy in detail. I did review the results of the various trials based on which these recommendations were derived. Reviewed side effects in detail. Questions were sought and answered. The patient and her expressed understanding. Patient education was provided. I do recommend followup with primary care provider within one week. She would also benefit from lab work within one week. I would also recommend followup with me within three months to repeat the computed tomography angiogram and review in detail. I also advised her to call 911 for any new sudden neurologic symptoms. Please feel free to contact me with any questions or concerns.
== END 2016-08-10 17:18 | disposition home or self-care (01) ==
LOC: SED 13:33 → MPC 15:54 → INTOOBSV 15:54
PROVIDERS: ADMIT Internal Medicine; ATTEND Internal Medicine
DX: G45.9 Transient cerebral ischemic attack, unspecified (principal); E11.9 Type 2 diabetes mellitus without complications; Z79.84 Long term (current) use of oral hypoglycemic drugs; G25.81 Restless legs syndrome; I10 Essential (primary) hypertension; W06.XXXA Fall from bed, initial encounter; Y93.89 Activity, other specified; Y92.013 Bedroom of single-family (private) house as the place of occurrence of the external cause; Y99.9 Unspecified external cause status; K31.84 Gastroparesis
CPT/HCPCS: 36415; 70450; 70549; 70553; 71010; 80048; 80053; 80061; 81000; 82607; 82746; 83036; 83540; 83550; 83735; 84484; 85025; 85610; 92610; 93005; 97161; 97165; A9585; G0378; G8996; G8997; G8998; J1644; J7030

== ENCOUNTER 2017-01-25 12:17 | Emergency (ER) | payer MEDICARE ==
[~2017-01-25] VITALS: Ht 162.6 cm; Wt 61.8 kg
[~2017-01-25 12:17] MED LIST changes: -AMOX500C2 PO; +CLOP75TA28 PO; -GLIM4TAB2 PO
[2017-01-25 12:19] VITALS: BP 175/91; PULSE 66; RESP 20; O2SAT 99
[2017-01-25 12:58] LABS: BASOPHILS % (AUTO) 0.2 % (0-3); EOSINOPHILS % (AUTO) 0.7 % (0-5); MONOCYTES % (AUTO) 4.7 % (4-12); Mean Corpuscular Hemoglobin 30.9 pg (27.0-35.0); Mean Corpuscular Volume 91.1 fL (81-100); NEUTROPHILS % (AUTO) 78.6 % (40-74); Platelet Count 192 bil/L (150-400)
[2017-01-25 13:23] LABS: Magnesium 1.6 mg/dL (1.6-2.6)
--- NOTE | 2017-01-25 14:53 | ED.REPORT ---
HPI-Abd Pain F 40 and Over Date of Service Jan 25, 2017 ED Provider: Jhony Ventura MD Pt is a 71 y/o female anticoagulated on Plavix w/ a hx of HTN, HLD, NIDDM, presenting to the ED c/o [id number] diffuse abdominal pain and diarrhea onset weeks ago. The patient has been experiencing diffuse abdominal aching pain and watery diarrhea for 2-3 weeks now and this morning she had black diarrhea which prompted her visit to the ED today. The patient was last on antibiotics last May. The patient has no history of GI bleed. She denies lightheadedness, dizziness, syncope, nausea, vomiting, chest pain, SOB, fever, chills. She has a family history of colon CA in her mother. She had a colonoscopy 2 years ago which was reportedly normal. Nursing Notes Stated Complaint: STOMACH PROBLEM/REFERRED BY DR CHACON Chief Complaint: Female Abdominal Pain Nursing Notes Reviewed: Yes Allergies: Coded Allergies: No Known Allergies (Verified , 01/25/17) Scheduled Aspirin (Aspirin) 81 Mg Tablet 81 MG PO DAILY Cephalexin (Keflex) 500 Mg Capsule 500 MG PO QID Clopidogrel (Clopidogrel) 75 Mg Tablet 75 MG PO DAILY Lisinopril (Lisinopril) 10 Mg Tablet 10 MG PO DAILY Metformin (Glucophage) 1,000 Mg Tablet 1,000 MG PO BID Simvastatin (Simvastatin) 20 Mg Tablet 20 MG PO HS Trazodone (Trazodone) 100 Mg Tablet 200 MG PO HS General Time Seen by MD: 14:49 Chief Complaint Other (dark stool) Hx Obtained From: Patient Arrived By: Walk-in Sudden in Onset?: No Onset Occurred: 1 - 4 hours ago Symptom Duration: Since onset Progression since Onset: Unchanged Location: : Diffuse Quality: Aching Severity: Current: Mild Severity: Maximum: Mild Past Medical History Past Medical History On Plavix NIDDM HTN HLD Insomnia Retinopathy Tubular adenoma of colon Gastroparesis syndrome TIA Past Surgical History Reports: Hysterectomy Reports: Back/neck surgery Family History Colon CA in mother Smoking History Never Smoker Social History Alcohol Use: Denies alcohol use Drug Use: Denies drug use Other Social History: Good social support, , Local resident Ambulatory Status Independent Review of Systems Constitutional: Denies: Chills, Fever Respiratory: Denies: Non-productive cough, Shortness of breath Cardiovascular: Denies: Chest pain GI: Reports: Abdominal pain, Bloody/tarry stool, Diarrhea, Denies: Melena, Nausea, Vomiting Complete sys rev & neg: except as marked. Physical Exam Vital Signs Vital Signs (First) Date Time Temp Pulse Resp B/P Pulse Ox O2 Delivery O2 Flow Rate FiO2 01/25/17 12:19 36.8 66 20 175/91 99 Room Air Initial VS: Reviewed, Vital signs abnormal Head / Eyes: Atraumatic, Normocephalic, PERRL ENT: Mucous membranes moist, Conjunctiva normal, No scleral icterus Neck: Supple, Full range of motion Extremities: Vascular intact, Neuro intact, No swelling Skin: Warm, Dry, No cyanosis Neurologic: Alert, Oriented, Nonfocal Psychiatric: Mood/affect normal, Behavior normal, Normal thought content General/Constitutional: Awake, Alert, No acute distress, Cooperative, Not toxic appearing Respiratory / Chest: Breath sounds NL, Breath sounds = bilat, No respiratory distress, No rales, No rhonchi, No wheezing Cardiovascular: Heart rate NL, Regular rhythm, Heart sounds NL, No murmurs Abdomen: Atraumatic, Soft, No guarding, No rebound, No distention Tenderness/Guarding/Rebound: Positive: Tender diffuse (mild) Back: Full range of motion, Painless range of motion Rectum / Perineum: Atraumatic, Blood - occult heme -, No gross blood, No mass Dark brown stool Interpretation & Diagnostics Lab Results Interpretation Result Diagram: 01/25/17 1250 01/25/17 1250 Test 01/25/17 12:50 01/25/17 15:07 01/25/17 15:43 White Blood Count 5.6th/mm3 (3.8-10.1) Red Blood Count 3.69mil/mm3 (3.90-5.20) Hemoglobin 11.4g/dL (12.0-15.6) Hematocrit 33.6% (35.0-46.0) Mean Corpuscular Volume 91.1fL (81-100) Mean Corpuscular Hemoglobin 30.9pg (27.0-35.0) Mean Corpuscular Hemoglobin Concent 33.9% (32.0-37.0) Red Cell Distribution Width 12.5% (12.3-15.4) Platelet Count 192bil/L (150-400) Neutrophils (%) (Auto) 78.6% (40-74) Lymphocytes (%) (Auto) 15.6% (14-46) Monocytes (%) (Auto) 4.7% (4-12) Eosinophils (%) (Auto) 0.7% (0-5) Basophils (%) (Auto) 0.2% (0-3) Sodium Level 138mEq/L (134-144) Potassium Level 5.4mEq/L (3.5-5.2) Chloride Level 99mEq/L (97-108) Carbon Dioxide Level 23mmol/L (18-29) Blood Urea Nitrogen 23mg/dL (8-27) Creatinine 1.27mg/dL (0.57-1.00) Estimat Glomerular Filtration Rate 59mL/min (>59) Glucose Level 219mg/dL (60-99) Calcium Level 9.8mg/dL (8.5-10.1) Magnesium Level 1.6mg/dL (1.6-2.6) Total Bilirubin 0.7mg/dL (0.0-1.2) Aspartate Amino Transf (AST/SGOT) 16U/L (0-50) Alanine Aminotransferase (ALT/SGPT) 8U/L (0-32) Alkaline Phosphatase 57U/L (25-165) Total Protein 7.2g/dL (6.4-8.4) Albumin 4.3g/dL (3.4-5.0) Lipase 34U/L (13-60) Hold Urine Received (Received) Urine Color Yellow (YELLOW) Urine Appearance Cloudy (CLEAR,HAZY) Urine pH 5.0 (5.0-8.0) Urine Specific [place] 1.020 (1.003-1.035) Urine Protein Tracemg/dL (NEG,TRACE) Urine Glucose (UA) Negativemg/dL (NEGATIVE) Urine Ketones Tracemg/dL (NEGATIVE) Urine Occult Blood Negative (NEGATIVE) Urine Nitrite Negative (NEGATIVE) Urine Bilirubin Negative (NEGATIVE) Urine Urobilinogen Normalmg/dL (NORMAL) Urine Leukocyte Esterase Moderate (NEGATIVE) Urine RBC 0-2/hpf (0-2) Urine WBC 11-50/hpf (0-5) Urine Epithelial Cells Moderate/hpf (NONE-MOD) Urine Crystals Amorphous urates (NONE Urine Bacteria Many/hpf (NONE-FEW) Urine Hyaline Casts None/lpf (NONE) Urine Granular Casts None seen (NONE SEEN) Urine Waxy Casts None seen (NONE SEEN) Urine Red Blood Cell Casts None seen (NONE SEEN) Urine White Blood Cell Casts None seen (NONE SEEN) Urine Mucus None seen (None Seen) Urine Trichomonas None seen (NONE SEEN) Urine Yeast None (NONE SEEN) Urinalysis Comment None Urine Culture Reflexed Indicated ECG Interpretation Time: 15:33 Interpreted by: ED physician Normal ECG Interpretation: Normal ECG w/ rate of... (85), Normal rate, Normal sinus rhythm, No acute ischemic changes, Normal QRS, Normal axis, Normal intervals, Adequate tracing Re-Eval/Medical Decision Med Decision/Clinical Course 71-year-old female presenting with crampy abdominal pain and diarrhea times several weeks. She is uncertain about dark stools. Her vital signs are stable. Her labs are unremarkable. She has questionable UTI. She is guaiac-negative with no gross blood. I do not see any acute emergent issue. She may benefit from outpatient colonoscopy. She will be treated for UTI with plans to follow up with primary doctor in several days. Return precautions given. Re-Evaluation/Progress : Time of Eval: 15:22 Re-Evaluation/Progress Note: Pt rechecked. Informed pt of plan for discharge. Pt understands and agrees with plan for discharge. F/U instructions and RTER warnings given. All questions addressed. Counseled Regarding: Diagnosis, Lab results, Need for follow-up, When/why to return to ED Discharge & Departure Primary Impression: Diarrhea Diarrhea type: unspecified type Qualified Code: R19.7 - Diarrhea, unspecified Additional Impressions: UTI (urinary tract infection) Urinary tract infection type: site unspecified Hematuria presence: without hematuria Qualified Code: N39.0 - Urinary tract infection, site not specified Dark stools Chronic abdominal pain Disposition: Home Discharge Condition All VS Reviewed: Yes Condition: Stable Patient Instructions: Chronic Abdominal Pain (ED), Chronic Diarrhea (ED), Urinary Tract Infection in Women (ED) Additional Instructions: Thank you for seeking care at the emergency room. The cause of your symptoms is unclear, but is likely not dangerous at this time. Our primary goal today in the Emergency Department was to evaluate you for any life-threatening conditions. Your evaluation was reassuring. Labs were reassuring. Your urine shows some signs of infection. You will be discharged with a prescription for Keflex to treat the presumed UTI. You should follow-up with your primary doctor in the next week. Further investigation into your chronic abdominal pain and diarrhea is best managed with a primary care doctor. You should return to the Emergency Department immediately if you develop fevers , vomiting, worsening pain, or any other concerning signs or symptoms. Thank you for letting us partake in your care today. Referrals: Johan Chacon MD (PCP) Christoph Attestation Portions of this note were transcribed by Geo Mercer. I, Dr. Ventura personally performed the history, physical exam and medical decision-making; I reviewed and confirmed the accuracy of the information in the transcribed note. Signed by Christoph Lin, 01/25/17 - copies to: Johan Chacon MD, Ben M MD Jan 25, 2017 14:53 GEO MERCER Jan 25, 2017 15:17
[2017-01-25 14:56] VITALS: BP 159/67; PULSE 86; RESP 11
[2017-01-25] MEDS ORDERED: CEPH-512 PO (15:20)
[2017-01-25 15:47] VITALS: BP 159/67; PULSE 86; RESP 11; O2SAT 99
[2017-01-25 16:12] LABS: APPEARANCE,URINE CLOUDY (CLEAR,HAZY); COLOR,URINE YELLOW (YELLOW); OCCULT BLOOD,URINE NEGATIVE (NEGATIVE); UROBILINOGEN,URINE NORMAL (NORMAL)
== END 2017-01-25 15:48 | disposition home or self-care (01) ==
LOC: SED 12:17
DX: R19.7 Diarrhea, unspecified (principal); N39.0 Urinary tract infection, site not specified; R19.5 Other fecal abnormalities; R10.84 Generalized abdominal pain; G89.29 Other chronic pain; I10 Essential (primary) hypertension; E78.5 Hyperlipidemia, unspecified; E11.319 Type 2 diabetes mellitus with unspecified diabetic retinopathy without macular edema; K31.84 Gastroparesis; Z80.0 Family history of malignant neoplasm of digestive organs; Z86.73 Personal history of transient ischemic attack (TIA), and cerebral infarction without residual deficits; Z79.01 Long term (current) use of anticoagulants; Z79.82 Long term (current) use of aspirin; Z79.84 Long term (current) use of oral hypoglycemic drugs